=== PATIENT | male | born 2000 | race African-American/Black ===

== ENCOUNTER 2019-05-24 15:07 | Emergency (ER) | payer BC, OTHER ==
[2019-05-24] MEDS ORDERED: Lidocaine 1% w/Epinephrine 1:100K 20 ML VIAL ONE (15:17)
[2019-05-24] MEDS ORDERED: Adacel (T-DAP) 0.5 ML SYRINGE ONE (15:19)
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
[2019-05-24] MEDS ORDERED: Bacitracin 1 PK ONE (15:42)
== END 2019-05-24 16:05 | disposition home or self-care (01) ==
LOC: ERS 15:07
DX: S41.111A Laceration without foreign body of right upper arm, initial encounter (principal); S60.221A Contusion of right hand, initial encounter; W45.8XXA Other foreign body or object entering through skin, initial encounter
CPT/HCPCS: 12002; 90471; 90715

== ENCOUNTER 2019-11-07 10:33 | Emergency (ER) | payer OTHER, SELFPAY ==
[2019-11-08 12:47] LABS: SARS-CoV-2 MS2 Positive; SARS-CoV-2 N Gene Negative; SARS-CoV-2 S Gene Negative; SARS-CoV-2 orf1ab Negative
== END 2019-11-07 11:22 | disposition home or self-care (01) ==
LOC: ERS 10:33
DX: J02.9 Acute pharyngitis, unspecified (principal); Z20.828 Contact with and (suspected) exposure to other viral communicable diseases; F17.290 Nicotine dependence, other tobacco product, uncomplicated
CPT/HCPCS: 87635; 99282; U0003